=== PATIENT | male | born 1950 | race Caucasian/White ===

== ENCOUNTER 2018-04-18 13:27 | Inpatient (IN) | payer MEDICARE, OTHER ==
[~2018-04-18] VITALS: Ht 177.8 cm; Wt 61.2 kg
--- NOTE | 2018-04-18 13:31 | NUR ---
PATIENT TO BED 2 BY EMS AT THIS TIME.
[2018-04-18 14:09] VITALS: BP 110/68
--- NOTE | 2018-04-18 14:21 | NUR ---
Assumed patient care, nursing assessment completed. Seen and evaluated by PAMELA LEDESMA completed.
[2018-04-18] MEDS ORDERED: NACL 0.9% 1,000 ML IV SCH (15:08)
[2018-04-18 15:44] LABS: BASOPHILS % (AUTO) 0.2 % (0.0-2.0); EOSINOPHILS % (AUTO) 0.3 % (0.0-4.0); HEMATOCRIT 44.3 % (36-52); LYMPHOCYTES # (AUTO) 1.1 K/uL (2.0-11.5); LYMPHOCYTES % (AUTO) 8.4 % (20.5-51.1); MEAN CORPUSCULAR HEMOGLOBIN 36 pg (27-31); MEAN CORPUSCULAR HGB CONC 34 g/dL (33-37); MEAN CORPUSCULAR VOLUME 106.3 fL (80-94); MONOCYTES # (AUTO) 0.9 K/uL (0.8-1.0); NEUTROPHILS # (AUTO) 11.4 K/uL (1.8-7.7); NEUTROPHILS % (AUTO) 84.1 % (42.2-75.2); PLATELET COUNT (AUTO) 183 K/uL (140-450); RED BLOOD CELL COUNT(AUTO) 4.17 MIL/uL (4.20-6.10); RED CELL DISTRIBUTION WIDTH 13.3 % (11.6-13.7); WHITE BLOOD COUNT (AUTO) 13.5 K/uL (4.8-10.8)
--- NOTE | 2018-04-18 15:44 | NUR ---
Bloood specimen drawn by lab, IVF hydration started. Maintained on safety precautions. at bedside.
[2018-04-18 15:55] LABS: PROTHROMBIN TIME 10.6 secs (10.8-13.4)
[2018-04-18 15:58] LABS: ALBUMIN 3.8 g/dL (3.4-5.0); ANION GAP 13.1 (8-16); CARBON DIOXIDE 24.6 mmol/L (21-32); CREATININE 0.9 mg/dL (0.7-1.3); POTASSIUM 3.7 mmol/L (3.5-5.1); TOTAL BILIRUBIN 0.6 mg/dL (0.0-1.0)
--- NOTE | 2018-04-18 16:47 | NUR ---
To CT via [facility].
[2018-04-18 16:52] LABS: APPEARANCE,URINE CLEAR (CLEAR); BILIRUBIN,URINE NEGATIVE (NEGATIVE); BLOOD, URINE NEGATIVE (NEGATIVE); COLOR,URINE YELLOW (YELLOW); LEUKOCYTE ESTERASE ,URINE NEGATIVE (NEGATIVE); NITRITE, URINE NEGATIVE (NEGATIVE); UGLUCOSE NEGATIVE (NEGATIVE)
[2018-04-18] MEDS ORDERED: DOCUSATE SODIUM 100 MG GELCAP PO PRN (18:30)
[2018-04-18] MEDS ORDERED: ONDANSETRON 4 MG/2 ML VIAL IM/IVP PRN (18:30)
[2018-04-18] MEDS ORDERED: ACETAMINOPHEN 325 MG TAB PO PRN (18:30)
[2018-04-18] MEDS ORDERED: HYDROcodone/APAP 7.5/325 MG 1 TAB PO PRN (18:30)
[2018-04-18 19:04] LABS: MAGNESIUM 1.9 mg/dL (1.8-2.4); PHOSPHORUS 3.2 mg/dL (2.5-4.9); THYROID STIMULATING HORMONE 2.8 uIU/mL (0.34-3.74)
[2018-04-18 19:12] LABS: BARBITURATE, URINE NEG. ng/ml (NEG <=200); BENZODIAZEPINE, URINE NEG. ng/mL (NEG <=200); CANNABINOID, URINE POS. ng/mL (NEG <=50); COCAINE, URINE NEG. ng/mL (NEG <=300); OPIATE, URINE NEG. ng/mL (NEG <=2000); PHENCYCLIDINE SCREEN,URINE NEG. ng/mL (NEG <=25)
--- NOTE | 2018-04-18 19:13 | NUR ---
Dispo and medical decision making, inpatient admission for further management. Patient care report endorsed to unit RN. Family updated accordingly.
[2018-04-18] MEDS ORDERED: VALA1TAB PO (19:18)
[2018-04-18] MEDS ORDERED: OLAN2.5T40 PO (19:18)
[2018-04-18] MEDS ORDERED: PRAV20TA2 PO (19:18)
[2018-04-18] MEDS ORDERED: DRON2.5S4 PO (19:18)
[2018-04-18] MEDS ORDERED: POTA10TE30 PO (19:18)
[2018-04-18] MEDS ORDERED: FLUC200T PO (19:18)
[2018-04-18 19:30] VITALS: BP 106/73
--- NOTE | 2018-04-18 19:30 | NUR ---
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
[2018-04-18] MEDS ORDERED: Z-GUARD PASTE TP PRN (20:40)
[2018-04-18] MEDS: NACL 0.9% 1,000 ML IV SCH (21:07)
[2018-04-18] MEDS ORDERED: BICT1TAB PO (21:11)
[2018-04-18] MEDS ORDERED: PNEUMOCOCCAL VACCINE 23 MCG/0.5 ML VIAL IMVAC PRN (21:30)
--- NOTE | 2018-04-18 21:30 | NUR ---
PT PROVIDED WITH CHICKEN BROTH, CRACKERS AND LEMON TULALIP SODA, TOLERATED WELL WITH FAIR APPETITE, NO N/V NOTED, SCD'S APPLIED, IVF OF NS AT 100ML/H STARTED, ALL NEEDS ATTENDED.
[2018-04-19] VITALS: BP 108/71
[2018-04-19] MEDS ORDERED: metroNIDAZOLE 500 MG/NS PREMIX 100 ML IV SCH
--- NOTE | 2018-04-19 01:00 | NUR ---
PT SLEEPING, EASILY AROUSABLE, VITAL SIGNS STABLE, DENIES ANY PAIN, PT HAD LOOSE BM, PERINEAL CARE DONE, Z-GUARD APPLIED TO PERINEAL AREA, STOOL SPECIMEN SENT TO LAB FOR C-DIFF, WBC AND CULTURE TEST, MONITORED CLOSELY.
[2018-04-19] MEDS: NACL 0.9% 1,000 ML IV SCH ×3 (04:27→23:39)
--- NOTE | 2018-04-19 04:30 | NUR ---
PT HAD ANOTHER LOOSE BROWN BM SMALL AMOUNT, PERINEAL CARE DONE, Z-GUARD RE-APPLIED, MONITORED CLOSELY.
[2018-04-19] MEDS: metroNIDAZOLE 500 MG/NS PREMIX 100 ML IV SCH ×3 (06:19→23:26)
--- NOTE | 2018-04-19 06:20 | NUR ---
PT SLEEPING, WAKE TO TOUCH, INFLUENZA SWABBED DONE, DUE FLAGYL IVPB ADMINISTERED, PT DENIES ANY PAIN, MAINTAIN ON CONTACT ISOLATION TO R/O C-DIFF, MONITORED CLOSELY.
--- NOTE | 2018-04-19 07:25 | NUR ---
PT AWAKE, NO DISTRESS NOTED, REPORT GIVEN TO CHRISTINE PHILIP FOR CONTINUITY OF CARE, PT'S AT BEDSIDE.
--- NOTE | 2018-04-19 07:30 | NUR ---
RECEIVED PT FROM GROUP EXERCISE INSTRUCTOR NURSECAROLE, PT IS AWAKE AND LYING ON THE BED WITH SIDE RAILS UP AND CALL LIGHT WITHIN REACH, FALL AND SAFETY PRECAUTION INITIATED, ON THE BEDSIDE, PT HAS A IBARRA CATHETER IN PLACE AND AN IV LINE ON THE LEFT FA G. 20 WITH NS AT 1OOML/HR INFUSING, INTACT. PT DENIES PAIN AND NO SIGN OF DISTRESS NOTED. WILL CONTINUE TO MONITOR PT.
[2018-04-19 07:53] LABS: MAGNESIUM 1.6 mg/dL (1.8-2.4); PHOSPHORUS 3.2 mg/dL (2.5-4.9)
[2018-04-19 07:57] LABS: BASOPHILS % (AUTO) 0.5 % (0.0-2.0); EOSINOPHILS # (AUTO) 0.3 K/uL (0-0.4); EOSINOPHILS % (AUTO) 3.3 % (0.0-4.0); HEMATOCRIT 35.4 % (36-52); HEMOGLOBIN 12.1 g/dL (12.0-18.0); LYMPHOCYTES # (AUTO) 1.4 K/uL (2.0-11.5); LYMPHOCYTES % (AUTO) 17.7 % (20.5-51.1); MEAN CORPUSCULAR HEMOGLOBIN 36 pg (27-31); MEAN CORPUSCULAR HGB CONC 34 g/dL (33-37); MONOCYTES # (AUTO) 0.7 K/uL (0.8-1.0); MONOCYTES % (AUTO) 8.5 % (1.7-9.3); NEUTROPHILS # (AUTO) 5.6 K/uL (1.8-7.7); PLATELET COUNT (AUTO) 138 K/uL (140-450); RED BLOOD CELL COUNT(AUTO) 3.34 MIL/uL (4.20-6.10); RED CELL DISTRIBUTION WIDTH 12.6 % (11.6-13.7)
[2018-04-19 07:58] LABS: ANION GAP 13.7 (8-16); CARBON DIOXIDE 21.5 mmol/L (21-32); CREATININE 0.7 mg/dL (0.7-1.3); POTASSIUM 3.2 mmol/L (3.5-5.1)
[2018-04-19 08:00] VITALS: BP 93/62
[2018-04-19 08:13] LABS: CHOL/HDL RATIO 3.1 (1-4.5)
--- NOTE | 2018-04-19 08:26 | NUR ---
PATIENT HAS BEEN SCREENED AND CATEGORIZED HIGH NUTRITION RISK. PATIENT WILL BE SEEN WITHIN 1-2 DAYS OF ADMISSION. 04/19/18-04/20/[address]
[2018-04-19] MEDS ORDERED: NON-FORMULARY ITEM (Bictegrav/Emtricit/Tenofov Ala (Biktarvy 50-200-25 mg Tablet) 1 EACH) PO SCH (09:00)
[2018-04-19] MEDS ORDERED: FLUCONAZOLE 100 MG TAB PO SCH (09:00)
[2018-04-19] MEDS ORDERED: NON-FORMULARY ITEM (Dronabinol 2.5 MG) PO SCH (09:00)
[2018-04-19] MEDS ORDERED: MAG SULF 2000 MG/WATER PREMIX 50 ML IV ONE (09:52)
[2018-04-19] MEDS: OLANZapine 2.5 MG TAB PO SCH (09:56)
[2018-04-19] MEDS ORDERED: MAG SULF 2000 MG/WATER PREMIX 50 ML IV SCH (10:00)
[2018-04-19] MEDS ORDERED: BIKTARVY TABLET PO SCH (12:00)
--- NOTE | 2018-04-19 12:00 | NUR ---
FNS WALT TALKING AND ASSESSING THE PT NOW, MEDICATION WAS GIVEN VIA ORAL AND PT TOLERATED IT. NO SIGN OF DISTRESS NOTED AND WILL CONTINUE TO MONITOR PT.
--- NOTE | 2018-04-19 12:15 | NUR ---
WOUND CARE EVALUATION NOTE: PT. ADMITTED TO [facility] WITH NAUSEA, VOMITING AND DIARRHEA. SKIN ASSESSMENT DONE AND LBM X1 DURING ASSESSMENT, MARLI-ANAL WITH IAD, MULTIPLE PIN POINTS EROSIONS AND ENTIRE REDNESS MEASUREMENT 3X3X0.1 CM, MOIST NO ODOR. WOUND CARE TEACHING TO PT. PT. VERBALIZES UNDERSTANDING RECOMMENDATIONS: -APPLY Z-GUARD TO MARLI-ANAL EROSIONS BIDWC AND PRN IF SOILING, LEAVE IT OPEN TO AIR -OFFLOAD BILATERAL HEELS BY PLACING PILLOWS UNDER CALVES UNLESS OTHERWISE CONTRAINDICATED -PRESSURE REDISTRIBUTION SURFACE THERAPY -TURN AND REPOSITION Q2H, OFFLOAD SACRALCOCCYX AND BUTTOCKS BY TURNING RIGHT AND LEFT -CONTINUE TO FOLLOW RD RECOMMENDATIONS ALL ABOVE RECOMMENDATIONS DISCUSSED WITH PRIMARY RN. PLEASE CONTACT WOUND CARE NURSE FOR ANY QUESTION AND CHANGE OF WOUND CONDITION.
[2018-04-19] MEDS ORDERED: VALA1TAB PO (12:54)
[2018-04-19] MEDS ORDERED: PRAV20TA2 PO (12:54)
[2018-04-19] MEDS ORDERED: KCL 20 MEQ/WATER INJ PREMIX 200 ML IV SCH (13:00)
--- NOTE | 2018-04-19 13:32 | NUR ---
PT IS AWAKE AND LYING ON THE BED WITH FAMILY ON THE BEDSIDE, ROCEPHIN WAS GIVEN TO PT VIA IVPB AND PT TOLERATED IT. NO SIGN OF DISTRESS NOTED AND WILL MONITOR PT.
--- NOTE | 2018-04-19 13:36 | NUR ---
DR. TORRES CAME TO THE PT'S ROOM, ASSESSED AND SPOKE TO PT, MD INFORMED THE PT AND FAMILY THAT PT WILL HAVE A COLONOSCOPY MICHEAL, ORDERED TO OBTAIN CONSENT. WILL FACILITATE MD ORDER.
[2018-04-19] MEDS ORDERED: cefTRIAXone 2,000 MG in DEXTROSE 5% 100 ML IV SCH (14:00)
[2018-04-19] MEDS ORDERED: POTASSIUM CHLORIDE 40 MEQ, LIDOCAINE 1% 25 MG in NACL 0.9% 250 ML IV SCH (14:00)
[2018-04-19] MEDS ORDERED: BOWEL EVACUANT DRINK 4,000 ML PDS PO SCH (14:15)
--- NOTE | 2018-04-19 14:28 | NUR ---
04/19/18 RD INITIAL ASSESSMENT COMPLETED PLEASE REFER TO NUTRITION ASSESSMENT UNDER CARE ACTIVITY FOR ESTIMATED NUTRITIONAL NEEDS. 1. RECOMMEND REGULAR DIET 2. RECOMMEND ENSURE (VANILLA) BID 3. RECOMMEND MVI 4. RD TO FOLLOW-UP 2-3 DAYS, HIGH RISK DI CANCHOLA, RD
--- NOTE | 2018-04-19 14:55 | NUR ---
PT IS ASLEEP AND LYING ON THE BED, IV ANTIBIOTIC WAS GIVEN VIA PIGGYBACK AND PT TOLERATED IT. RESPIRATION EVEN AND NO SIGN OF DISTRESS NOTED, WILL MONITOR PT.
[2018-04-19 16:00] VITALS: BP 107/59
--- NOTE | 2018-04-19 16:50 | NUR ---
DR. BARAKAT IS TALKING TO PT'S FAMILY OF PT REGARDING THE COLONOSCOPY SCHEDULED FOR THE PT MICHEAL. EXPLAINED AND ANSWERED ALL QUESTIONS BY THE PT AND . POTASSIUM RIDER WAS GIVEN TO PT. VITAL SIGNS TAKEN AND IS WITHIN NORMAL LIMIT. NO SIGN OF DISTRESS NOTED AND WILL MONITOR PT.
[2018-04-19] MEDS: POTASSIUM CHLORIDE 20% 40 MEQ/15 ML UDC GT SCH (17:00)
--- NOTE | 2018-04-19 17:00 | NUR ---
PT'S SIGNED THE CONSENT FOR THE COLONOSCOPY SCHEDULED TOMORROW, WITNESSED BY RN AM ON DUTY AND CONSENT ATTACHED TO CHART.
--- NOTE | 2018-04-19 17:11 | NUR ---
POTASSIUM MEDICATION SCHEDULED FOR PT AT [address] AND DR. BARAKAT WAS ADVISED AND SAID THAT SHE DID NOT ORDER THE MEDICATION, PT HAS ONGOING K RIDER NOW VIA IVPB, WILL MONITOR PT.
[2018-04-19] MEDS: SENNA 8.6 MG TAB PO SCH (18:19)
--- NOTE | 2018-04-19 19:25 | NUR ---
ENDORSED PT TO ROTO ROOTER OPERATOR NURSE FOR CONTINUITY OF CARE. PT IS AWAKE AND STABLE WITH FAMILY ON THE BEDSIDE.
--- NOTE | 2018-04-19 19:30 | NUR ---
RECEIVED ENDORSEMENT FROM AM SHIFT RN; PT IS AWAKE AND LYING ON THE BED, A/Ox3, LEGALLY BLIND, ABLE TO MAKE NEEDS KNOWN, AT BEDSIDE. PATIENT HAS A IBARRA CATHETER IN PLACE AND AN IV LINE ON THE LEFT FOREARM, 20 GAUGE WITH NS AT 1OOML/HR INFUSING, INTACT. PT DENIES PAIN AND NO SIGN OF DISTRESS NOTED. BED IN THE LOWEST POSITION, CALL LIGHT WITHIN REACH. INITIAL ASSESSMENT DONE. WILL CONTINUE TO MONITOR PT.
--- NOTE | 2018-04-19 20:36 | NUR ---
PATIENT CHANGED. BM IS BROWN, SEMI-SOLID.
[2018-04-19] MEDS ORDERED: MAGNESIUM CITRATE 300 ML BTL PO SCH (21:00)
--- NOTE | 2018-04-19 23:02 | NUR ---
PATIENT VOMITED; LINENS, GOWN AND CHUX WERE CHANGED. BM IS BROWN, LIQUID.
[2018-04-20] VITALS: BP 108/62
--- NOTE | 2018-04-20 00:01 | NUR ---
ROUNDS DONE, VITALS TAKEN. PATIENT ASLEEP, EYES CLOSED, VISIBLE CHEST RISE AND FALL NOTED.
[2018-04-20] MEDS ORDERED: LEVOFLOXACIN 500 MG/D5W PREMIX 100 ML IV SCH (01:00)
--- NOTE | 2018-04-20 02:00 | NUR ---
FREQUENT CHECKS MADE, ASKED PATIENT TO DRINK MORE OF HIS BOWEL PREP. TOLERATED WELL, NO EPISODE OF VOMITING.
--- NOTE | 2018-04-20 03:50 | NUR ---
PATIENT NOTED WITH BROWN, LIQUID BM. PATIENT CLEANED, CHUX AND LINENS CHANGED, REPOSITIONED. TOLERATED WELL.
--- NOTE | 2018-04-20 06:10 | NUR ---
PATIENT FINISHED BOWEL PREP. Addendum: 04/20/18 at 0829 by Mamadou Nunes RN REMOVED IBARRA CATHETER AT THIS TIME.
[2018-04-20] MEDS: metroNIDAZOLE 500 MG/NS PREMIX 100 ML IV SCH ×2 (06:12→14:25)
[2018-04-20 06:50] LABS: BASOPHILS % (AUTO) 0.3 % (0.0-2.0); EOSINOPHILS # (AUTO) 0.1 K/uL (0-0.4); EOSINOPHILS % (AUTO) 1.4 % (0.0-4.0); HEMATOCRIT 37.5 % (36-52); HEMOGLOBIN 12.9 g/dL (12.0-18.0); LYMPHOCYTES # (AUTO) 1.5 K/uL (2.0-11.5); LYMPHOCYTES % (AUTO) 18.5 % (20.5-51.1); MEAN CORPUSCULAR HEMOGLOBIN 36 pg (27-31); MEAN CORPUSCULAR HGB CONC 34 g/dL (33-37); MEAN CORPUSCULAR VOLUME 104.8 fL (80-94); MONOCYTES # (AUTO) 0.6 K/uL (0.8-1.0); MONOCYTES % (AUTO) 8.1 % (1.7-9.3); NEUTROPHILS # (AUTO) 5.6 K/uL (1.8-7.7); NEUTROPHILS % (AUTO) 71.7 % (42.2-75.2); PLATELET COUNT (AUTO) 167 K/uL (140-450); RED BLOOD CELL COUNT(AUTO) 3.57 MIL/uL (4.20-6.10); WHITE BLOOD COUNT (AUTO) 7.9 K/uL (4.8-10.8)
--- NOTE | 2018-04-20 07:10 | NUR ---
ENDORSED PATIENT TO AM SHIFT RN; PATIENT IN STABLE CONDITION.
--- NOTE | 2018-04-20 07:15 | NUR ---
RECEIVED PT FROM PROJECT MANAGER INDUSTRIAL NURSEANDRY, PT IS AWKE AND ON THE BEDSIDE, PT HAS AN IV LINE ON THE LEFT FA G. 20 WITH NS INFUSING AT 100ML/HR, PT IS ON A FALL PRECAUTION AND SAFETY PRECAUTION WAS INITIATED, SIDE RAILS ARE UP AND CALL LIGHT WITHIN REACH, PT DENIES PAIN AND NO SOB NOTED. NO SIGN OF DISTRESS NOTED AND WILL MONITOR PT.
[2018-04-20 07:25] LABS: FOLIC ACID 13.8 ng/mL (>3.0)
[2018-04-20 07:48] LABS: PHOSPHORUS 3.3 mg/dL (2.5-4.9)
[2018-04-20 08:00] VITALS: BP 115/71
[2018-04-20 08:12] LABS: ANION GAP 12.2 (8-16); CARBON DIOXIDE 26.4 mmol/L (21-32); CREATININE 0.7 mg/dL (0.7-1.3); POTASSIUM 3.6 mmol/L (3.5-5.1)
--- NOTE | 2018-04-20 08:40 | NUR ---
PT IS AWAKE AND VITAL SIGNS WERE TAKEN AND IS WITHIN NORMAL LIMIT. NO SIGN OF DISTRESS NOTED AND WILL CONTINUE TO MONITOR.
[2018-04-20] MEDS ORDERED: VALACYCLOVIR HCL 1 GM PO SCH (09:00)
[2018-04-20] MEDS ORDERED: NON-FORMULARY ITEM (Pravastatin Sodium* (Pravachol*) 20 MG) PO SCH (09:00)
[2018-04-20] MEDS ORDERED: POTASSIUM CHLORIDE 10 MEQ TABER PO SCH (09:00)
[2018-04-20] MEDS ORDERED: VALACYCLOVIR HCL PO SCH (09:00)
[2018-04-20] MEDS ORDERED: PRAVASTATIN SODIUM 10 MG PO SCH (09:00)
--- NOTE | 2018-04-20 09:00 | NUR ---
PT WAS CLEANED AND REPOSITIONED WITH THE HELP OF MARYLU MANRIQUE AND MADE COMFORTABLE ON THE BED. WILL MONITOR BOWEL.
--- NOTE | 2018-04-20 09:07 | NUR ---
DR. BARAKAT WAS ASKED REGARDING THE SCHEDULED POTASSIUM SUPPLEMENT FOR THE PT, DR. BARAKAT WAS INFORMED THAT THE PT'S K LEVEL IS 3.[address] BARAKAT SAID TO STILL GIVE THE POTASSIUM SUPPLEMENT BECAUSE PT IS HAVING LOOSE BOWEL MOVEMENT AND K WILL BE DEPLETED. ACKNOWLEDGED AND CARRIED OUT ORDER.
[2018-04-20] MEDS: OLANZapine 2.5 MG TAB PO SCH (09:15)
[2018-04-20] MEDS: SENNA 8.6 MG TAB PO SCH ×3 (09:16→16:25)
[2018-04-20] MEDS: POTASSIUM CHLORIDE 20% 40 MEQ/15 ML UDC GT SCH ×3 (09:16→16:24)
[2018-04-20] MEDS: LACTOBACILLUS RHAMNOSUS GG 1 EACH CAP PO SCH (09:16)
[2018-04-20] MEDS: VALACYCLOVIR 1 GM PO SCH (09:18)
[2018-04-20] MEDS: BIKTARVY TABLET PO SCH (09:20)
--- NOTE | 2018-04-20 09:20 | NUR ---
PT IS AWAKE AND ORAL MEDICATIONS WERE GIVEN, PT TOLERATED IT AND NO SIGN OF DISTRESS NOTED. WILL MONITOR.
[2018-04-20] MEDS: NACL 0.9% 1,000 ML IV SCH (10:27)
[2018-04-20] MEDS ORDERED: FLUCONAZOLE 100 MG TAB PO SCH (12:59)
[2018-04-20] MEDS: PRAVASTATIN 10 MG PO SCH (13:22)
--- NOTE | 2018-04-20 14:28 | NUR ---
PT IS AWAKE AND LYING ON THE BED, WITH FAMILY ON THE BEDSIDE, FLAGYL WAS GIVEN VIA PIGGYBACK AND PT TOLERATED IT. NO SIGN OF DISTRESS NOTED. WILL MONITOR PT.
--- NOTE | 2018-04-20 14:47 | NUR ---
DR. TORRES CAME TO THE PT'S ROOM AND SPOKE TO PT AND , DR. TORRES SAID THAT HE WILL DO THE COLONOSCOPY TOMORROW BECAUSE BOWEL IS STILL NOT CLEAR, PT WAS INFORMED AND VERBALIZED UNDERSTANDING.
[2018-04-20] MEDS ORDERED: MAGNESIUM CITRATE 300 ML BTL PO SCH (15:30)
[2018-04-20 16:00] VITALS: BP 109/74
[2018-04-20] MEDS: LACTULOSE 20 GM/30 ML UDC PO SCH (16:25)
--- NOTE | 2018-04-20 16:30 | NUR ---
PT IS AWAKE AND FAMILY ON THE BEDSIDE, ORAL MEDICATIONS WERE GIVEN AND PT TOLERATED IT. NO SIGN OF DISTRESS NOTED AND WILL MONITOR PT.
--- NOTE | 2018-04-20 19:35 | NUR ---
ENDORSED PT TO PRODUCTION CONSULTANT NURSESHARA FOR CONTINUITY OF CARE, PT IS AWAKE WITH FAMILY ON THE BEDSIDE AND IS STABLE AT THIS TIME.
--- NOTE | 2018-04-20 19:36 | NUR ---
RECEIVED ENDORSEMENT FROM AM SHIFT RN; PT IS AWAKE AND LYING ON THE BED, A/Ox3, LEGALLY BLIND, ABLE TO MAKE NEEDS KNOWN, AT BEDSIDE. NO SOB OR DISTRESS NOTED. IV LINE ON THE LEFT FOREARM, 20 GAUGE, INTACT. BED IN THE LOWEST POSITION, CALL LIGHT WITHIN REACH. INITIAL ASSESSMENT DONE. WILL CONTINUE TO MONITOR.
[2018-04-20] MEDS: MIRTAZAPINE 15 MG TAB PO SCH (20:33)
[2018-04-20] MEDS: FLUCONAZOLE 100 MG TAB PO SCH (20:34)
--- NOTE | 2018-04-20 21:10 | NUR ---
DUE MEDS GIVEN, TOLERATED WELL. PATIENT NOTED WITH SMALL, FORMED, BROWN BM AT THIS TIME. PATIENT CLEANED, LINENS AND CHUX CHANGED. Addendum: 04/21/18 at 0314 by Mamadou Nunes RN REPOSITIONED, TOLERATED WELL.
--- NOTE | 2018-04-20 23:48 | NUR ---
ROUNDS MADE, VITALS TAKEN. PATIENT HAS EYES CLOSED, VISIBLE CHEST RISE AND FALL NOTED.
[2018-04-21] VITALS: BP 111/72
[2018-04-21] MEDS ORDERED: LEVOFLOXACIN 500 MG/D5W PREMIX 100 ML IV SCH
--- NOTE | 2018-04-21 01:50 | NUR ---
FREQUENT CHECKS MADE. PATIENT ASLEEP, EYES CLOSED, VISIBLE CHEST RISE AND FALL NOTED.
[2018-04-21] MEDS: NACL 0.9% 1,000 ML IV SCH ×2 (02:12→21:53)
--- NOTE | 2018-04-21 04:00 | NUR ---
PATIENT ASLEEP, NO SOB OR DISTRESS NOTED.
--- NOTE | 2018-04-21 05:45 | NUR ---
PATIENT CLEANED, LINENS AND CHUX WERE CHANGED. REPOSITIONED. LARGE BM NOTED, HARD, FORMED, BROWN AND ALSO SOME LIQUID.
[2018-04-21] MEDS: LEVOFLOXACIN 750 MG/D5W PREMIX 150 ML IV SCH (05:49)
[2018-04-21 06:23] LABS: ANION GAP 14.1 (8-16); CARBON DIOXIDE 22.5 mmol/L (21-32); CREATININE 0.6 mg/dL (0.7-1.3); MAGNESIUM 1.7 mg/dL (1.8-2.4); PHOSPHORUS 2.9 mg/dL (2.5-4.9); POTASSIUM 3.6 mmol/L (3.5-5.1)
[2018-04-21 06:41] LABS: BASOPHILS % (AUTO) 0.4 % (0.0-2.0); EOSINOPHILS # (AUTO) 0.2 K/uL (0-0.4); EOSINOPHILS % (AUTO) 2.7 % (0.0-4.0); HEMATOCRIT 35.9 % (36-52); HEMOGLOBIN 12.7 g/dL (12.0-18.0); LYMPHOCYTES # (AUTO) 1.7 K/uL (2.0-11.5); LYMPHOCYTES % (AUTO) 24.8 % (20.5-51.1); MEAN CORPUSCULAR HEMOGLOBIN 37 pg (27-31); MEAN CORPUSCULAR HGB CONC 35 g/dL (33-37); MEAN CORPUSCULAR VOLUME 104.4 fL (80-94); MONOCYTES # (AUTO) 0.6 K/uL (0.8-1.0); MONOCYTES % (AUTO) 8.7 % (1.7-9.3); NEUTROPHILS # (AUTO) 4.4 K/uL (1.8-7.7); NEUTROPHILS % (AUTO) 63.4 % (42.2-75.2); PLATELET COUNT (AUTO) 174 K/uL (140-450); RED BLOOD CELL COUNT(AUTO) 3.44 MIL/uL (4.20-6.10)
--- NOTE | 2018-04-21 07:15 | NUR ---
ENDORSED PATIENT TO AM SHIFT RN; PATIENT IN STABLE CONDITION.
--- NOTE | 2018-04-21 07:30 | NUR ---
RECEIVED PT REPORT FROM TYPE ROLLING MACHINE OPERATOR NURSE AT BEDSIDE. PT IS AWAKE, NO S/S OF ACUTE DISTRESS OR SOB. PT IS ON ROOM AIR, SKIN IS INTACT. THERE IS SOME REDNESS AROUND THE RECTAL AND SCROTAL AREA DUE TO FREQUENT BM'S AND CLEANING. SCD'S ON. PT IN NPO AT THIS TIME FOR POSSIBLE COLONOSCOPY, CONSENT WAS ALREADY SIGNED YESTERDAY. IV SITE NOTED ON THE LFA, 20 G, INFUSING NS 50 ML/HR. CALL LIGHT WITHIN REACH. WILL CONTINUE TO MONITOR.
[2018-04-21 08:00] VITALS: BP 113/78
--- NOTE | 2018-04-21 08:00 | NUR ---
PT'S CAME TO VISIT PT AT BEDSIDE. PT HAD A SMALL LOOSE BROWN BM, PT WAS CLEANED AND CHANGED, AND REPOSITIONED. Z-GUARD APPLIED TO REDDENED MARLI AREAS.
[2018-04-21] MEDS ORDERED: Z-GUARD PASTE TP PRN (08:14)
[2018-04-21] MEDS ORDERED: MAG SULF 2000 MG/WATER PREMIX 100 ML IV SCH (08:30)
[2018-04-21] MEDS: POTASSIUM CHLORIDE 20% 40 MEQ/15 ML UDC GT SCH ×3 (09:47→17:56)
[2018-04-21] MEDS: LACTULOSE 20 GM/30 ML UDC PO SCH (09:48)
[2018-04-21] MEDS: SENNA 8.6 MG TAB PO SCH (09:49)
[2018-04-21] MEDS: LACTOBACILLUS RHAMNOSUS GG 1 EACH CAP PO SCH (09:49)
[2018-04-21] MEDS: OLANZapine 2.5 MG TAB PO SCH (09:50)
[2018-04-21] MEDS: CYANOCOBALAMIN 100 MCG TAB PO SCH (09:50)
[2018-04-21] MEDS: BIKTARVY TABLET PO SCH (09:50)
[2018-04-21] MEDS: VALACYCLOVIR 1 GM PO SCH (09:50)
[2018-04-21] MEDS: FLUCONAZOLE 100 MG TAB PO SCH ×2 (09:50→20:51)
[2018-04-21] MEDS ORDERED: BOWEL EVACUANT DRINK 4,000 ML PDS PO SCH (10:00)
[2018-04-21] MEDS ORDERED: MAGNESIUM CITRATE 300 ML BTL PO SCH (10:00)
--- NOTE | 2018-04-21 10:09 | NUR ---
AM MEDS ADMINISTERED. PT INSTRUCTED TO DRINK 2000 ML GOLYTELY AND MAG CITRATE FOR BOWEL PREP, FOR COLONOSCOPY.
--- NOTE | 2018-04-21 10:24 | NUR ---
SUSHILA NOTE RECEIVED ORDER FOR: DC PLANNING TO SNF FOR PT, PLAN DC ON 04/22/18. FAXED ORDER FOR SNF AND PT EVAL NOTES TO [facility]. I INFORMED [facility] SUSHILA NEWMAN THAT PER DR. BARAKAT THE PATIENT'S FAMILY PREFERS [facility]. PER SUSHILA NEWMAN, FAX INQUIRY TO [facility] AND IF [facility] CANNOT TAKE THE PATIENT TO SEND TO THEIR OTHER CONTRACTED SNFs. FAXED INQUIRY TO [facility]. PER JOI # [phone] OF [facility] THEY WILL REVIEW THE INQUIRY AND WILL LET US KNOW IF THEY CAN TAKE THE PATIENT OR NOT. PER SUSHILA NEWMAN, FOR TRANSPORTATION GOING TO THE SNF TO USE [facility] OR [facility] DEPENDING ON THE PATIENT'S NEEDS AND WHO SERVICES THE AREA. PER SUSHILA NEWMAN FOR [facility] OR [facility] AUTH# [id number]. SUSHILA NEWMAN ALSO SAID THAT IF THE PATIENT IS GOING ON THE WEEKEND TO CALL THEIR DOCUMENT SCANNER MANAGER IT TRAINING GIRMA PH# [phone] TO CONFIRM THE AUTHORIZATION NUMBER FOR THE TRANSPORTATION AND TO GET THE AUTHORIZATION# FOR THE ACCEPTING SNF. CHARGE NURSE MARCO ANTONIO HAM.
--- NOTE | 2018-04-21 11:36 | NUR ---
PT JUST HAD ANOTHER WATERY BROWN BM. PT CLEANED AND CHANGED. PT STILL DRINKING GOLYTELY ORDERED. FIRST BAG OF IV MAGNESIUM STILL INFUSING. AT BEDSIDE. WILL CONTINUE TO MONITOR.
--- NOTE | 2018-04-21 12:30 | NUR ---
Electrical Plumbing Supervisor Note: I called and spoke with patient's June Costello . I obtained the following information from June. Patient lives at home with June. Patient has a cane, walker, and wheelchair that belonged to Lindsey mother. June assist patient with ADLs at home. No one else besides June assist patient with ADLs at home. I advised her to inquire if patient qualifies for [employer]. I explained to her that if patient does qualify for [employer], she has option of applying for IHSS on patient�s behalf. By having IHSS, patient can have an additional caregiver besides June. She drives patient to pcp�s office and is in process of completing an application for [facility] for patient. She would like patient to return home upon discharge from snf. She is aware [facility] is in the process of finding an accepting snf or snfs. June would like to tour accepting snf or accepting snfs before patient is transfer. June stated that if she does not like accepting snf or accepting snfs, she prefers to take patient home, Cofounder Cari made aware. Public Address System Installer and/or Cofounder will follow up as needed.
[2018-04-21] MEDS: PRAVASTATIN 10 MG PO SCH (13:00)
--- NOTE | 2018-04-21 13:21 | NUR ---
PT LEAVING THE FLOOR FOR COLONOSCOPY AT THIS TIME.
--- NOTE | 2018-04-21 13:40 | NUR ---
CM NOTE PER JOI OF [facility], THEY CANNOT TAKE THE PATIENT BECAUSE THEY ARE UNABLE TO MEET THE PATIENT'S NEEDS. DR. BARAKAT AND PATIENT'S SHEREE BRUNO MADE AWARE. PER [facility] PATY, SEND INQUIRY TO THEIR OTHER CONTRACTED SNFs: [facility], [facility], [facility], [facility]. FAXED [facility]QUIRY TO [facility], [facility], [facility], [facility]. PER GERALD OF [facility] PH# [phone], THEY CAN TAKE THE PATIENT WHEN READY FOR DISCHARGE AND CAN GO TO [facility]. PER GERALD THEY WOULD STILL HAVE TO CONTACT [facility] TO DETERMINE WHICH DOCTOR WILL BE ASSIGNED. PER FLAKITO OF [facility], THEY ARE STILL REVIEWING THE PACKET. PER MIKEY OF [facility], IT'S CLINICALLY A NO FOR THEM. RECEIVED VM FROM PATIENT'S SHEREE BRUNO STATING THAT IF [facility] CANNOT TAKE THE PATIENT, SHE WANTS THE PATIENT TO GO TO [facility] WHEN READY FOR DISCHARGE. SHE SAID HER PREFERENCE FOR [facility] WAS BASED ON ONLINE RATING REVIEWS PHYSICAL THERAPY. I CALLED PATIENT'S SHEREE SARABIA PH# [phone] TO INFORM HER THAT [facility] CANNOT TAKE THE PATIENT BUT [facility] IN [place] CAN TAKE THE PATIENT WHEN READY FOR DISCHARGE. PER PATIENT'S SHEREE SARABIA, SHE WANTS THE PATIENT TO GO TO [facility] UPON DISCHARGE. [facility] PATY MADE AWARE THAT [facility] IS ACCEPTING THE PATIENT AND WILL HAVE A ROOM AVAILABLE WHEN PATIENT IS READY FOR DISCHARGE. DR. BARAKAT AWARE. PER [facility] SUSHILA NEWMAN, FOR [facility] AUTH# [id number] AND FOR [facility] SNF AUTH# [id number]. PER SUSHILA NEWMAN, TO HAVE THE CHARGE NURSE/PATIENT'S ASSIGNED NURSE AT THE TIME OF DISCHARGE TO CALL THEIR LABEL TACKER/WEEKEND MAIN LINE ASSEMBLER GIRMA PH# [phone] TO CHECK WITH HER IF THE AUTHORIZATIONS FOR THE TRANSPORTATION AND SNF ARE STILL VALID ON THE DATE THAT PATIENT IS BEING DISCHARGED BEFORE SENDING THE PATIENT TO [facility]. CHARGE NURSE MARCO ANTONIO AWARE.
[2018-04-21] MEDS ORDERED: diphenhydrAMINE 50 MG/ML VIAL ONE (13:49)
[2018-04-21] MEDS: MIDAZOLAM 2 MG/2 ML VIAL ONE ×2 (14:10→14:25)
[2018-04-21] MEDS: fentaNYL 0.05 MG/ML VIAL ONE ×2 (14:10→14:25)
--- NOTE | 2018-04-21 14:42 | NUR ---
04/21/18 RD FOLLOW UP COMPLETED PLEASE REFER TO NUTRITION ASSESSMENT UNDER CARE ACTIVITY FOR ESTIMATED NUTRITIONAL NEEDS. 1. CONTINUE NPO MEDICALLY APPROPRIATE 2. WHEN PATIENT�S DIET CAN BE ADVANCED PER MD RECOMMEND CHIOMA WHATLEY 3. RD TO FOLLOW-UP 2-3 DAYS, HIGH RISK DI CANCHOLA, RD
--- NOTE | 2018-04-21 15:20 | NUR ---
PT BACK FROM COLONOSCOPY. AND RELATIVES IN AT BEDSIDE. PER OR NURSES, PT TOLERATED PROCEDURE WELL. VS STABLE. PT'S FAMILY WISHES TO TALK TO MD REGARDING WHAT IS GOING TO HAPPEN FROM THIS POINT. WILL NOTIFY MD TO COME TALK TO PT AND FAMILY.
[2018-04-21 16:00] VITALS: BP 143/75
--- NOTE | 2018-04-21 19:25 | NUR ---
PT ENDORSED TO LABORER ELECTROPLATING IN STABLE CONDITION.
[2018-04-21] MEDS: MIRTAZAPINE 15 MG TAB PO SCH (20:51)
[2018-04-21] MEDS: HYDROCORTISONE SUPPOSITORY 25 MG SUPP RC SCH (20:51)
[2018-04-21] MEDS ORDERED: HYDROCORTISONE 100 MG/60 ML RC SCH (21:00)
--- NOTE | 2018-04-21 21:10 | NUR ---
PATIENT CLEANED, LINENS AND CHUX CHANGED, REPOSITIONED. TOLERATED WELL.
[2018-04-22] VITALS: BP 135/84
--- NOTE | 2018-04-22 00:05 | NUR ---
FREQUENT CHECKS MADE. PATIENT ASLEEP, VISIBLE CHEST RISE AND FALL NOTED.
--- NOTE | 2018-04-22 02:20 | NUR ---
FREQUENT CHECKS MADE. NO DISTRESS NOTED.
--- NOTE | 2018-04-22 03:45 | NUR ---
PATIENT COMPLAINED OF URINARY RETENTION. BLADDER SCAN PERFORMED, 860mL OF URINE RETAINED. DR. LANCASTER MADE AWARE, ORDERED IBARRA INSERTION. FIRST ATTEMPT WITH SIZE 16 ALBANIAN; UNSUCCESSFUL, BLEEDING OCCURRED. MADE DR. LANCASTER AWARE, ORDERED STRAIGHT CATHETER TO BE ADMINISTERED. ALBANIAN 14 IBARRA CATHETER INSERTED. SUCCESSFUL, 720mL OF URINE OBTAINED. PATIENT STATED HE WAS NO LONGER FELT DISTENDED. BLADDER IS SOFT. TOLERATED WELL.
[2018-04-22] MEDS: LEVOFLOXACIN 750 MG/D5W PREMIX 150 ML IV SCH (05:20)
--- NOTE | 2018-04-22 06:55 | NUR ---
IV DISLODGED; INSERTED NEW IV ON RIGHT WRIST, 24 GAUGE, INTACT AND PATENT.
--- NOTE | 2018-04-22 07:20 | NUR ---
RECEIVED PT REPORT FROM CRUSHER NURSE AT BEDSIDE. PT IS AWAKE IN BED, IS AT BEDSIDE. NO S/S OF ACUTE DISTRESS OR SOB NOTED. PT IS ON ROOM AIR, SKIN INTACT. NEW IV SITE NOTED ON THE RFA 24 G, PATENT AND INTACT. OLD IV STILL IN, WILL REMOVE IT LATER. PT IS ON REGULAR DIET. ASKING LOCOMOTIVE ENGINEER ELECTRIC TO COME CLEAN AND CHANGE THE PT, LOCOMOTIVE ENGINEER ELECTRIC IS AWARE AND WILL CHANGE HIM AFTER BREAKFAST TRAYS ARE PASSED AROUND. FALL PRECAUTIONS IN PLACE. CALL LIGHT WITHIN REACH. WILL CONTINUE TO MONITOR.
--- NOTE | 2018-04-22 07:30 | NUR ---
ENDORSED PATIENT TO AM SHIFT RN; PATIENT IN STABLE CONDITION.
[2018-04-22 07:49] LABS: ANION GAP 16.6 (8-16); BASOPHILS % (AUTO) 0.3 % (0.0-2.0); CARBON DIOXIDE 20.6 mmol/L (21-32); CREATININE 0.7 mg/dL (0.7-1.3); EOSINOPHILS # (AUTO) 0.1 K/uL (0-0.4); EOSINOPHILS % (AUTO) 0.9 % (0.0-4.0); HEMATOCRIT 38.5 % (36-52); HEMOGLOBIN 13.4 g/dL (12.0-18.0); LYMPHOCYTES # (AUTO) 0.9 K/uL (2.0-11.5); LYMPHOCYTES % (AUTO) 12.1 % (20.5-51.1); MEAN CORPUSCULAR HEMOGLOBIN 36 pg (27-31); MEAN CORPUSCULAR HGB CONC 35 g/dL (33-37); MEAN CORPUSCULAR VOLUME 103.3 fL (80-94); MONOCYTES # (AUTO) 0.6 K/uL (0.8-1.0); NEUTROPHILS # (AUTO) 5.9 K/uL (1.8-7.7); NEUTROPHILS % (AUTO) 78.7 % (42.2-75.2); PLATELET COUNT (AUTO) 194 K/uL (140-450); POTASSIUM 4.2 mmol/L (3.5-5.1); RED BLOOD CELL COUNT(AUTO) 3.72 MIL/uL (4.20-6.10); WHITE BLOOD COUNT (AUTO) 7.5 K/uL (4.8-10.8)
[2018-04-22 07:55] LABS: PHOSPHORUS 3.8 mg/dL (2.5-4.9)
[2018-04-22 08:00] VITALS: BP 116/77
[2018-04-22] MEDS ORDERED: TAMSULOSIN 0.4 MG CAP PO SCH (08:30)
[2018-04-22] MEDS: VALACYCLOVIR 1 GM PO SCH (09:00)
[2018-04-22] MEDS: HYDROCORTISONE SUPPOSITORY 25 MG SUPP RC SCH (09:00)
[2018-04-22] MEDS ORDERED: LACTULOSE 20 GM/30 ML UDC PO SCH (09:00)
[2018-04-22] MEDS ORDERED: SENNA 8.6 MG TAB PO SCH (09:00)
[2018-04-22] MEDS: BIKTARVY TABLET PO SCH (09:00)
[2018-04-22] MEDS: POTASSIUM CHLORIDE 20% 40 MEQ/15 ML UDC GT SCH ×2 (10:15→14:15)
[2018-04-22] MEDS: CYANOCOBALAMIN 100 MCG TAB PO SCH (10:16)
[2018-04-22] MEDS: OLANZapine 2.5 MG TAB PO SCH (10:16)
[2018-04-22] MEDS: LACTOBACILLUS RHAMNOSUS GG 1 EACH CAP PO SCH (10:17)
[2018-04-22] MEDS: FLUCONAZOLE 100 MG TAB PO SCH (10:17)
--- NOTE | 2018-04-22 10:25 | NUR ---
PT C/O INABILITY TO URINATE. PT'S ABDOMEN IS HARD AND DISTENDED. BLADDER SCAN SHOWED >999 MLS OF URINE. MD IS AWARE. WILL DRAIN BLADDER VIA STRAIGHT CATH.
--- NOTE | 2018-04-22 10:57 | NUR ---
PT STRAIGHT CATHED, 700 ML CLEAR YELLOW URINE DRAINED.
[2018-04-22] MEDS ORDERED: FLUC100T1 PO (11:26)
[2018-04-22] MEDS ORDERED: TAMS0.4C96 PO (11:26)
[2018-04-22] MEDS ORDERED: ZGUARD TP (11:26)
[2018-04-22] MEDS ORDERED: LACT10SO11 PO (11:26)
[2018-04-22] MEDS ORDERED: MIRT15TA4 PO (11:26)
[2018-04-22] MEDS ORDERED: LEVO750T2 PO (11:27)
[2018-04-22] MEDS ORDERED: HYDR-2734 RC (11:52)
[2018-04-22] MEDS: PRAVASTATIN 10 MG PO SCH (13:00)
--- NOTE | 2018-04-22 14:48 | NUR ---
REPORT GIVEN TO NURSE RAYO AT [facility] REGARDING PT'S TRANSFER TODAY.
--- NOTE | 2018-04-22 17:04 | NUR ---
PT WAS ADMINISTERED PNA VACCINE.
--- NOTE | 2018-04-22 18:30 | NUR ---
PT HAS TRANSFERRED TO [facility] VIA [facility]. PT WAS ACCOMPANIED BY HIS AND FAMILY. PNA VACCINE ADMINISTERED UPON DC. IV SITES AND WRIST BANDS REMOVED. PT LEFT IN STABLE CONDITION WITH ALL HIS BELONGINGS.
== END 2018-04-22 18:30 | DRG 393 ==
LOC: MED 13:27 → MTU 18:27
PROVIDERS: ADMIT General Practice; ATTEND General Practice
PROC: 3E0234Z Introduction of Serum, Toxoid and Vaccine into Muscle, Percutaneous Approach (ICD-10-PCS; 2018-04-18)
PROC: 0DBP8ZX Excision of Rectum, Via Natural or Artificial Opening Endoscopic, Diagnostic (ICD-10-PCS; principal; 2018-04-21 17:40)
DX: K62.6 Ulcer of anus and rectum (principal); N17.0 Acute kidney failure with tubular necrosis; B20 Human immunodeficiency virus [HIV] disease; K59.00 Constipation, unspecified; K52.9 Noninfective gastroenteritis and colitis, unspecified; K64.8 Other hemorrhoids; R26.81 Unsteadiness on feet; E87.6 Hypokalemia; E83.42 Hypomagnesemia; E87.8 Other disorders of electrolyte and fluid balance, not elsewhere classified; R33.9 Retention of urine, unspecified; H54.40 Blindness, one eye, unspecified eye; F29 Unspecified psychosis not due to a substance or known physiological condition; E78.5 Hyperlipidemia, unspecified; L30.8 Other specified dermatitis; D75.89 Other specified diseases of blood and blood-forming organs; E86.0 Dehydration; R63.0 Anorexia; Z86.718 Personal history of other venous thrombosis and embolism; Z83.3 Family history of diabetes mellitus; Z80.3 Family history of malignant neoplasm of breast; Z84.89 Family history of other specified conditions; Z23 Encounter for immunization
CPT/HCPCS: 36415; 71045; 80048; 80053; 80305; 81003; 82150; 82607; 82746; 83036; 83605; 83690; 83735; 83880; 84100; 84443; 84484; 85025; 85610; 85730; 86900; 86901; 87040; 87045; 87070; 87081; 87086; 87804; 88305; 89055; 90732; 93005; 96360; 97110; 97530; 99285; C1758; J0696; J1200; J1956; J2001; J2250; J3010; J3475; J3480; J3490; J7030; J7060; J7120